=== PATIENT | male | born 1940 | race Caucasian/White ===

== ENCOUNTER → 2025-04-03 | Outpatient (CLI) | payer MEDICARE, BC ==
[~2025-04-03] MED LIST: ACET-861 PO; AMIO100T11; CARDCAP3 PO; COLA100C5 PO; CULTCAP2 PO; DILT240C83; FERR325T3 PO; FINA5TAB2; FLUT1BLS8; FOLI1TAB11; IBAN150T10; IPRA2IN; ISOVUE-370 76% 100 ML VIAL As Ordered ONE; LEVA1.2526; LEVA45AE; LEVO1TAB39; METO1TAB32; MIRA3350 PO; MUCI1TAB16 PO; PARO5TAB; PRED10TA2; TAMS1CAP17; TRIA1CR80; VITA500C24 PO; potassium PO
== END ==
LOC: M RAD 13:54
PROVIDERS: ATTEND Student in an Organized Health Care Education/Training Program
DX: D64.9 Anemia, unspecified (principal); R63.4 Abnormal weight loss; N20.0 Calculus of kidney; R91.8 Other nonspecific abnormal finding of lung field; J90 Pleural effusion, not elsewhere classified; I25.10 Atherosclerotic heart disease of native coronary artery without angina pectoris; K76.89 Other specified diseases of liver; N40.0 Benign prostatic hyperplasia without lower urinary tract symptoms; I71.43 Infrarenal abdominal aortic aneurysm, without rupture; E04.2 Nontoxic multinodular goiter; J43.2 Centrilobular emphysema
CPT/HCPCS: 71260; 74177; Q9967

== ENCOUNTER → 2025-04-27 | Day surgery (SDC) | payer MEDICARE, BC ==
[~2025-04-27] VITALS: Ht 176.5 cm; Wt 66.7 kg
[~2025-04-27] MED LIST changes: -AMIO100T11; +AMIO100T11 PO; -DILT240C83; +DILT240C83 PO; -FINA5TAB2; +FINA5TAB2 PO; -FOLI1TAB11; +FOLI1TAB11 PO; -IBAN150T10; +IBAN150T10 PO; -IPRA2IN; +IPRA2IN INH; -ISOVUE-370 76% 100 ML VIAL As Ordered ONE; -LEVA1.2526; +LEVA1.2526 INH; -LEVA45AE; +LEVA45AE INH; -LEVO1TAB39; +LEVO1TAB39 PO; +LIDOCAINE 2% 100 MG/5 ML SDV (FOR ANES.) As Ordered ONE; -METO1TAB32; +METO1TAB32 PO; -PARO5TAB; +PARO5TAB PO; -PRED10TA2; +PRED10TA2 PO; +SIMETHICONE 40MG/0.6ML DROPS 30ML As Ordered ONE; -TAMS1CAP17; +TAMS1CAP17 PO
[2025-04-27 09:35] VITALS: BP 125/77; TEMP 97.5; O2SAT 97
== END | disposition home or self-care (01) ==
LOC: M OPP 06:50
PROVIDERS: ATTEND Internal Medicine Gastroenterology
DX: D12.6 Benign neoplasm of colon, unspecified (principal); K57.30 Diverticulosis of large intestine without perforation or abscess without bleeding; K64.0 First degree hemorrhoids; D50.9 Iron deficiency anemia, unspecified; K22.70 Barrett's esophagus without dysplasia; K31.89 Other diseases of stomach and duodenum; I48.91 Unspecified atrial fibrillation; Z88.8 Allergy status to other drugs, medicaments and biological substances; Z79.52 Long term (current) use of systemic steroids; Z79.51 Long term (current) use of inhaled steroids; Z79.899 Other long term (current) drug therapy; J44.9 Chronic obstructive pulmonary disease, unspecified; Z87.891 Personal history of nicotine dependence
CPT/HCPCS: 43239; 45385; 88305; J3010

== ENCOUNTER → 2025-05-08 | Outpatient (CLI) | payer MEDICARE, BC ==
[~2025-05-08] MED LIST changes: -LIDOCAINE 2% 100 MG/5 ML SDV (FOR ANES.) As Ordered ONE; -SIMETHICONE 40MG/0.6ML DROPS 30ML As Ordered ONE
== END ==
LOC: M RAD 12:32
PROVIDERS: ATTEND Student in an Organized Health Care Education/Training Program
DX: D64.9 Anemia, unspecified (principal); E04.1 Nontoxic single thyroid nodule